=== PATIENT | female | born 1995 | race Two or more races ===

== ENCOUNTER 2024-06-10 13:48 | Emergency (ER) | payer MEDICAID, SELFPAY ==
[2024-06-10 13:49] VITALS: BMI 31.8
[2024-06-10 14:07] VITALS: BP 136/81; PULSE 100; RESP 18; TEMP 37.6; O2SAT 99
--- NOTE | 2024-06-10 14:13 | PD.EDVAGBL ---
ED OB Contraction Preg RMI/HPI General Chief complaint: Vaginal Bleeding Stated complaint: VAGINAL BLEEDING 4 WEEKS Time Seen by Provider: 06/10/24 14:12 Arrival date/time: 06/10/24 13:48 28 year old female present to emergency room with c/o of vaginal bleeding for 4 weeks. today. LOCATION: suprapubic SEVERITY: Symptoms are described as being severe with limitations on activities of daily living QUALITY: Symptoms are described as being cramping CONTEXT: The patient is unable to identify any inciting events. DURATION/TIMING: The symptoms started approximately one day ago and have been waxing/waning but always present without ever completely resolving. ASSOCIATED SYMPTOMS: The patient is unable to identify any other associated symptoms. MODIFYING FACTORS: The patient is unable to identify any alleviating or aggravating symptoms. PERTINENT ROS: denies trauma, denies domestic violence, no dysuria or hematuria, no orthostatic symptoms, no nausea or vomiting, no fevers, no anorexia, no diarrhea or constipation REVIEW OF SYSTEMS: See History of Present Illness - with the exception of those mentioned in the history of present illness, all other systems reviewed and reported as negative GENERAL: In general the patient is awake, interactive, in an emergency department gurney. HEAD/EYES/EARS/NOSE/THROAT: normo-cephalic, atraumatic, mucus membranes are moist, anicteric, palpebral conjunctiva is pink, trachea is midline. CARDIOVASCULAR: regular rate and regular rhythm, no murmurs, heart sounds are not distant, strong pulses in all four extremities that are equal and symmetric bilateral upper and lower extremities, normal capillary refill. CHEST/PULMONARY: normal chest rise and fall, good air movement, clear to auscultation bilaterally, normal inspiratory to expiratory ratios without evidence of respiratory distress. NECK: No midline/Paraspinal tenderness, no step off ROM/Strenght intact No Kernig and bruzinski sign. No trauma ABDOMEN: soft,lower abdominal tenderness, no masses appreciated BACK: normal range of motion without pain. NEUROLOGICAL: cranio-facial features are symmetric, moves all four extremities equally without obvious limitations or weakness. EXTREMITY: no tenderness to palpation over the long bones or large joints of the bilateral upper and lower extremities, no joint swelling, no joint erythema, no signs of trauma, no unilateral leg swelling and no peripheral edema. SKIN: warm, dry, well-perfused, no jaundice, no rash, no telangiectasias or petechia. PSYCH: calm, cooperative, no evidence of psychosis or agitation Related Data Home Medications ?Medication ?Instructions ?Recorded ?Confirmed prenat.vits,roverto,zve-tvpd-eodxe 1 tab PO QDAY 12/27/23 01/15/24 Previous Rx's ?Medication ?Instructions ?Recorded ibuprofen 600 mg tablet 600 mg PO Q6H PRN pain #30 tabs 01/23/24 cephalexin 500 mg capsule 500 mg PO TID 7 days #21 caps 06/10/24 Allergies Allergy/AdvReac Type Severity Reaction Status Date / Time No Known Allergies Allergy Verified 06/10/24 13:52 Course Course Course Narrative: This patient presents with vaginal bleeding in the first trimester. DDX includes ectopic, IUP, threatened/inevitable , along with completed . Patient is HDS and without a history of coagulopathy or infectious symptoms. Doubt alternate acute emergent pathology. Plan: bHCG, +/- basic labs, type and screen, TVUS, reassess Quality Measures none Orders Category Date Time Status US OB <= 14 weeks fetus Stat Exams 06/10/24 14:17 Completed US renal BI Stat Exams 06/10/24 14:18 Completed ABO/RH Type Stat Lab 06/10/24 14:46 Received Beta HCG,Quantitative Stat Lab 06/10/24 14:46 Completed CBC Stat Lab 06/10/24 14:46 Completed CMP [Comprehensive Metabolic Panel] Stat Lab 06/10/24 14:46 Completed UA [Urinalysis] Stat Lab 06/10/24 15:01 Completed Urine Culture Stat Lab 06/10/24 15:01 Received cephALEXin [Keflex] Med 06/10/24 16:12 Discontinued 500 mg PO X1 ONE Vital Signs Vital signs: Vital Signs Temperature 99.6 F 06/10/24 14:07 Pulse Rate 100 06/10/24 14:07 Respiratory Rate 18 06/10/24 14:07 Blood Pressure 136/81 H 06/10/24 14:07 Pulse Oximetry (%) 99 06/10/24 14:07 Oxygen Delivery Method Room Air 06/10/24 14:07 Vaginal Bleeding Patient data External records reviewed:: [facility] previous records Clinical information provided by:: patient Social determinants that could affect healthcare access:: none Patient has the following chronic illnesses:: none How is presenting disease/condition affected by chronic disease/condition?: no chronic disease Evaluation data The following diagnostics were reviewed and interpreted by me:: lab results and radiology exam(s) Lab and/or radiology exams considered but not ordered:: none Interpretation Summary: US: Uterus 8.2 x 4.5 x 5.9 cm No uterine mass or intrauterine gestation Endometrial stripe 0.3 cm Right ovary 2.8 x 1.7 x 2.8 cm arterial flow to millimeters follicular cyst Left ovary 2.5 x 1.3 x 2.5 cm arterial flow IMPRESSION: No uterine mass or intrauterine gestation us renal: Mild left renal parenchymal scar formation No hydronephrosis or renal calculi No bladder mass or bladder calculi Bladder prevoid volume 433 cc postvoid volume 74 cc IMPRESSION: Mild left renal parenchymal scar formation No renal calculi or hydronephrosis hc urine: + leuks + wbc + rbc possible UTi cbc/cmp no acute findings. Medications / Prescriptions Medications or Prescriptions considered but not ordered:: none Medication administrations:: Medication Administration History Discontinued Medications Cephalexin HCl (Cephalexin 250 Mg Capsule) 500 mg PO X1 ONE Stop: 06/10/24 16:13 as stated above Consultations Consultation(s) initiated? (list below): No Diagnosis Vaginal Bleeding Differential Diagnosis: threatened , dysfunctional uterine bleeding, menometrorrhagia, ectopic without intrauterine , vaginal bleeding and other ( ) Most likely diagnosis given after review of the tests above:: UTI, vaginal Admission Indicated Admission indicated?: not indicated Admission Request Was there a request for admission?: No Disposition Plan Disposition Plan: Discharge Discharge Attestation Discharge Attestation: The patient and all family members were given an opportunity to ask questions and understood the discharge instructions. Discharge instructions specifically effects, indications for sooner follow up or return to the emergency department, and the expected course of current diagnosis. Patient condition: Stable Discharge Plan Plan Patient Disposition: HOME (Self Care) Health Concerns: Return to ED or OB in 2-3 days for repeat hcg levels/US Return to ED if symptoms worsen Prescriptions/Referrals Prescriptions/Med Rec: New cephalexin 500 mg capsule 500 mg PO TID 7 Days Qty: 21 0RF No Action prenat.vits,roverto,six-diff-mmset Tablet 1 tab PO QDAY ibuprofen 600 mg tablet 600 mg PO Q6H PRN (Reason: pain) Qty: 30 0RF Referrals: Micheal Garrison MD [Primary Care Provider] - In 1 week Problem List Clinical Impression: Vaginal bleeding during , UTI (urinary tract infection) Patient/Caregiver Discharge Instructions Education Materials: Understanding Urinary Tract ..., Bleeding During Early Print Language: Divehi Stand Alone Forms: Laura Award Info., Patient Portal Info Letter
--- NOTE | 2024-06-10 14:17 | XR_ITS ---
Examination: Complete OB ultrasound, less than 14 weeks, transabdominal Date and time of exam: June 10, 2024 1522 hours INDICATIONS: Onset vaginal bleeding and pelvic cramping beginning today Technique: Obstetrical ultrasound images less than 14 weeks performed via transabdominal imaging Findings: Uterus 8.2 x 4.5 x 5.9 cm No uterine mass or intrauterine gestation Endometrial stripe 0.3 cm Right ovary 2.8 x 1.7 x 2.8 cm arterial flow to millimeters follicular cyst Left ovary 2.5 x 1.3 x 2.5 cm arterial flow IMPRESSION: No uterine mass or intrauterine gestation
--- NOTE | 2024-06-10 14:18 | XR_ITS ---
Examination: Retroperitoneal ultrasound, complete Technique: Multiple high resolution grayscale images of the retroperitoneum obtained, including kidneys and bladder. Exam date and time:June 10, 2024 1528 hours INDICATIONS: Onset left-sided flank pain today FINDINGS: Right kidney 10.1 x 5.3 x 6.2 cm cortex 1.2 cm Left kidney 9.3 x 5.3 x 4.8 cm cortex 1.3 cm Mild left renal parenchymal scar formation No hydronephrosis or renal calculi No bladder mass or bladder calculi Bladder prevoid volume 433 cc postvoid volume 74 cc IMPRESSION: Mild left renal parenchymal scar formation No renal calculi or hydronephrosis
[2024-06-10 15:12] LABS: Basophils # (Auto) 0.1 Thou/mm3 (0.0-0.2); Basophils % (Auto) 1 % (0-2.5); Eosinophils # (Auto) 0.3 Thou/mm3 (0.0-0.5); Eosinophils % (Auto) 3 % (0-10); Hematocrit 39.5 % (36.0-46.0); Hemoglobin 13.6 g/dL (12.0-16.0); Immature Granulocytes % (Auto) 0 % (0-0); Immature Granulocytes Auto 0.04 Thou/mm3 (0.00-0.00); Lymphocytes # (Auto) 2.8 Thou/mm3 (1.0-4.8); Lymphocytes % (Auto) 23 % (10-50); Mean Corpuscular HGB Conc 34.4 g/dl (31.0-37.0); Mean Corpuscular Volume 81 fL (80-100); Monocytes # (Auto) 0.6 Thou/mm3 (0.0-0.8); Monocytes % (Auto) 5 % (0-12); Neutrophils # (Auto) 8.5 Thou/mm3 (1.8-7.7); Neutrophils % (Auto) 69 % (37-80); Nucleated Red Blood Cell % 0 /100 WBC (0); Platelet Count 242 Thou/mm3 (140-440); RDW Standard Deviation 37.6 fL (36.4-46.3); Red Blood Count 4.85 Miln/mm3 (4.00-5.20); White Blood Count 12.3 Thou/mm3 (3.6-11.0)
[2024-06-10 15:12] LABS: Collection Type, Urine Voided
[2024-06-10 15:30] LABS: Bilirubin,Urine Negative (Negative); Blood,Urine 3+ (Negative); Clarity,Urine Turbid (Clear/Hazy); Color,Urine Colorless (Lt Yel-Yel); Glucose, Urine Negative (Negative); Ketones,Urine Negative (Negative); Leukocyte Esterase,Urine Positive (Negative); Nitrite,Urine Negative (Negative); Protein,Urine Trace (Neg - Trace); RBC,Urine 41 /hpf (0-3); Specific Gravity,Urine 1.011 (1.001-1.035); Squamous Epithelial Cell,Urine 11 /hpf (0-5); Urobilinogen,Urine Negative mg/dL (0.0-1.0); WBC,Urine 20 /hpf (0-5)
[2024-06-10 15:36] LABS: Alanine Aminotransferase 16 U/L (10-49); Albumin, Serum 5.1 gm/dL (3.5-5.0); Albumin/Globulin Ratio 1.5 (1.2-2.2); Alkaline Phosphatase 143 U/L (46-116); Anion Gap 12 (7-16); Aspartate Amino Transferase 21 U/L (0-34); BUN/Creatinine Ratio 22 Ratio (12-20); Beta HCG,Quantitative 6 mIU/mL (<5.0); Bilirubin,Total 0.7 mg/dL (0.3-1.2); Blood Urea Nitrogen 13 mg/dL (9-23); Calcium 9.7 mg/dL (8.3-10.6); Calcium (Corrected) 9.7 mg/dL (8.5-10.1); Carbon Dioxide 23.6 mMol/L (20.0-31.0); Chloride 103 mMol/L (98-107); Creatinine (Component) 0.6 mg/dL (0.6-1.3); Estimated Creatinine Clearance 142.5 mL/min (>60); Globulin 3.4 gm/dL (2.3-3.5); Glucose 99 mg/dL (74-106); Osmolality,Calculated 277 (275-295); Potassium 3.6 mMol/L (3.4-5.1); Sodium 139 mMol/L (136-145); Total Protein 8.5 gm/dL (5.7-8.2); eGFR > 60 See Note
[2024-06-10 16:13] VITALS: BP 118/70; PULSE 86; RESP 16; TEMP 36.9; O2SAT 97
[2024-06-10] MEDS: cephALEXin 250 MG CAPSULE 500 MG PO (16:28)
== END 2024-06-10 17:51 | disposition home or self-care (01) ==
PROVIDERS: Physician Assistant; Emergency Provider Emergency Medicine; PCP Family Medicine
DX: O20.9 Hemorrhage in early pregnancy, unspecified (principal); O23.41 Unspecified infection of urinary tract in pregnancy, first trimester; Z3A.01 Less than 8 weeks gestation of pregnancy
CPT/HCPCS: 36415; 76770; 76801; 80053; 81001; 84702; 85025; 86900; 86901; 87086; 99284; A9270

== ENCOUNTER 2025-03-18 04:53 | Observation (INO) | payer MEDICAID, SELFPAY ==
[2025-03-18] VITALS (9 sets, daily range): BP systolic 105–116; BP diastolic 66–67; PULSE 81–97; RESP 17–99; TEMP 36.8; O2SAT 98–100; BMI 33.6
== END 2025-03-18 08:15 | disposition home or self-care (01) ==
PROVIDERS: Admitting Provider Specialist; Visit Provider Specialist
DX: O47.1 False labor at or after 37 completed weeks of gestation (principal); Z3A.39 39 weeks gestation of pregnancy
CPT/HCPCS: 59025; 59899

== ENCOUNTER 2025-03-18 10:32 | Inpatient (IN) | payer MEDICAID, SELFPAY ==
[2025-03-18] VITALS (82 sets, daily range): BP systolic 86–175; BP diastolic 46–88; PULSE 71–131; RESP 15–18; TEMP 36.7–36.8; O2SAT 86–100; BMI 33.6
--- NOTE | 2025-03-18 07:56 | ESHP_ITS ---
RE: NACHO CRAWFORD : 1995 DATE OF ADMISSION: 03/18/2025 This is a 29-year-old 5 para 3-0-1-3 with due date of 03/23 with intrauterine at 39 weeks and 2 days who presents to labor and delivery complaining of contractions. She denies any leaking or bleeding. She reports normal movement. She denies any bleeding. ALLERGIES: NO KNOWN DRUG ALLERGIES. MEDICATIONS: multivitamin 1 p.o. daily. PAST MEDICAL HISTORY: Migraine headache with aura, borderline chronic hypertension, chlamydia cervicitis in 01/2022. SOCIAL HISTORY: She denies any alcohol, drug use, or smoking. FAMILY HISTORY: Mother has migraine headaches and hypertension. OB HISTORY: In 2015 a 40-week normal vaginal delivery of 9-ctezdr-83-ounce male, no complications. In 2020 a 40-week normal vaginal delivery of 8-bfnece-28-ounce female, no complication. In 2023 a 40-week normal vaginal delivery of 6-bjvhk-02-ounce male, no complication. In 05/2024 a spontaneous AB of 4 weeks gestation, no D and C. PAST SURGICAL HISTORY: Denies. REVIEW OF SYSTEMS: She denies any chest pain, palpitations, cough, fever, shortness of breath, flank pain, or lower extremity pain. PHYSICAL EXAMINATION: VITAL SIGNS: Blood pressure is 109/61, heart rate 88, respiration 18, temperature is 98.6. Weight is 189 pounds. HEENT: Oropharynx and sclerae clear. LUNGS: Clear to auscultation bilaterally. HEART: Regular rate and rhythm. ABDOMEN: Gravid, term size consistent with estimated weight is 7 pounds 5 ounces. PELVIC: See RN notes. EXTREMITIES: Nontender. SKIN: No gross rashes or lesions. NEUROLOGIC: No focal deficit. ASSESSMENT AND PLAN: Intrauterine at 39 weeks and 2 days, labor, anticipate spontaneous vaginal delivery. Informed consent was obtained. The patient made aware of the risk, complication, alternative, and benefits of operative vaginal delivery and delivery and agrees with these modes of delivery if indicated. DT: 06:10:02 TT: 07:54:00 Ref: [id number] - TID: [id number]
[2025-03-18 11:09] LABS: Basophils # (Auto) 0.1 Thou/mm3 (0.0-0.2); Basophils % (Auto) 1 % (0-2.5); Eosinophils # (Auto) 0.3 Thou/mm3 (0.0-0.5); Eosinophils % (Auto) 2 % (0-10); Hematocrit 36.9 % (36.0-46.0); Hemoglobin 12.6 g/dL (12.0-16.0); Immature Granulocytes Auto 0.15 Thou/mm3 (0.00-0.00); Lymphocytes # (Auto) 3.0 Thou/mm3 (1.0-4.8); Lymphocytes % (Auto) 19 % (10-50); Mean Corpuscular HGB Conc 34.1 g/dl (31.0-37.0); Mean Corpuscular Hemoglobin 28.0 pg (25.0-35.0); Mean Corpuscular Volume 82 fL (80-100); Monocytes # (Auto) 1.1 Thou/mm3 (0.0-0.8); Monocytes % (Auto) 7 % (0-12); Neutrophils # (Auto) 11.4 Thou/mm3 (1.8-7.7); Neutrophils % (Auto) 72 % (37-80); Nucleated Red Blood Cell # 0.00 Thou/mm3 (0.00-0.00); Nucleated Red Blood Cell % 0 /100 WBC (0); Platelet Count 183 Thou/mm3 (140-440); RDW Standard Deviation 40.5 fL (36.4-46.3); Red Blood Count 4.50 Miln/mm3 (4.00-5.20); White Blood Count 15.9 Thou/mm3 (3.6-11.0)
[2025-03-18] MEDS: RINGERS LACTATED 1000 ML 1,000 ML 100 ML IV ×2 (11:13→12:15)
[2025-03-18 12:02] LABS: Syphilis Nonreactive (Nonreactive)
[2025-03-18] MEDS: OXYTOCIN in NS 20 units 20 UNIT/1,000 ML BAG 125 UNIT IV (15:55)
[2025-03-18] MEDS: IBUPROFEN TAB 400 MG TABLET 800 MG PO (16:13)
[2025-03-18] MEDS: BENZO/LANO/ALOE (Dermoplast) 60 GM CAN 1 SPRAY TOP (16:13)
--- NOTE | 2025-03-18 16:20 | PD.LDDS ---
DS: Providers Provider Date of admission: 03/18/25 10:32 Primary care physician: Physician No Primary/Family Admitting Provider: Lauro Hernandez MD Attending Provider on Admission: Lauro Hernandez MD Attending Provider on DC: Lauro Hernandez MD Discharging Provider: Lauro Hernandez MD DS: Diagnosis Problem List Completed Was Problem List Reviewed/Reconciled?: Yes Summary/Hosp Course Peripartum Data Delivery Method: Normal Vaginal Delivery Episiotomy Description: None Time Spent with Patient Time attestation: Total time spent providing and/or coordinating discharge services: Exam Vital Signs Pulse BP Pulse Ox 99 135/49 H 87 L 03/18/25 16:02 03/18/25 16:02 03/18/25 15:51 Discharge Plan Plan Patient Disposition: HOME (Self Care) Patient condition on transfer: Stable Prescriptions/Referrals Prescriptions/Med Rec: New ibuprofen 600 mg tablet 600 mg PO Q6H PRN (Reason: pain) Qty: 30 0RF amoxicillin-pot clavulanate 875-125 mg tablet 1 tab PO Q12H Qty: 10 0RF Referrals: No Primary/Family,Physician [Primary Care Provider] Patient/Caregiver Discharge Instructions Discharge Activity: activity as tolerated Other Discharge Activity Instructions:: Follow up office 6 weeks. Education Materials: After a Vaginal , Breast Care After , : Caring for Yourself Print Language: Amharic Stand Alone Forms: Laura Award Info., Patient Portal Info Letter, Work/Release Restrictions Discharge Order Discharge Orders: Discharge (Routine); Ordered 03/19/25 Ordered By: Lauro Hernandez Planned Discharge Date 03/19/25
[2025-03-18 18:03] LABS: Basophils # (Auto) 0.1 Thou/mm3 (0.0-0.2); Basophils % (Auto) 0 % (0-2.5); Eosinophils # (Auto) 0.0 Thou/mm3 (0.0-0.5); Eosinophils % (Auto) 0 % (0-10); Hematocrit 31.9 % (36.0-46.0); Hemoglobin 10.9 g/dL (12.0-16.0); Immature Granulocytes Auto 0.18 Thou/mm3 (0.00-0.00); Lymphocytes # (Auto) 1.6 Thou/mm3 (1.0-4.8); Lymphocytes % (Auto) 7 % (10-50); Mean Corpuscular HGB Conc 34.2 g/dl (31.0-37.0); Mean Corpuscular Hemoglobin 28.1 pg (25.0-35.0); Mean Corpuscular Volume 82 fL (80-100); Monocytes # (Auto) 1.5 Thou/mm3 (0.0-0.8); Monocytes % (Auto) 6 % (0-12); Neutrophils # (Auto) 20.4 Thou/mm3 (1.8-7.7); Neutrophils % (Auto) 86 % (37-80); Nucleated Red Blood Cell # 0.00 Thou/mm3 (0.00-0.00); Nucleated Red Blood Cell % 0 /100 WBC (0); Platelet Count 144 Thou/mm3 (140-440); RDW Standard Deviation 40.2 fL (36.4-46.3); Red Blood Count 3.88 Miln/mm3 (4.00-5.20); White Blood Count 23.7 Thou/mm3 (3.6-11.0)
[2025-03-18] MEDS: HYDROcodone/APAP 5/325 TABLET 1 TAB PO (18:29)
[2025-03-18 18:34] LABS: Fibrinogen 441 mg/dL (175-375)
[2025-03-18] MEDS: AMPICILLIN/SULBAC INJ 3 GM in SODIUM CHLORIDE 0.9% (POP) 100 ML IV (21:52)
[2025-03-18 23:15] LABS: Basophils # (Auto) 0.1 Thou/mm3 (0.0-0.2); Basophils % (Auto) 1 % (0-2.5); Eosinophils # (Auto) 0.1 Thou/mm3 (0.0-0.5); Eosinophils % (Auto) 1 % (0-10); Hematocrit 32.4 % (36.0-46.0); Hemoglobin 11.0 g/dL (12.0-16.0); Immature Granulocytes Auto 0.16 Thou/mm3 (0.00-0.00); Lymphocytes # (Auto) 3.0 Thou/mm3 (1.0-4.8); Lymphocytes % (Auto) 14 % (10-50); Mean Corpuscular HGB Conc 34.0 g/dl (31.0-37.0); Mean Corpuscular Hemoglobin 28.0 pg (25.0-35.0); Mean Corpuscular Volume 82 fL (80-100); Monocytes # (Auto) 1.7 Thou/mm3 (0.0-0.8); Monocytes % (Auto) 8 % (0-12); Neutrophils # (Auto) 16.1 Thou/mm3 (1.8-7.7); Neutrophils % (Auto) 76 % (37-80); Nucleated Red Blood Cell # 0.00 Thou/mm3 (0.00-0.00); Nucleated Red Blood Cell % 0 /100 WBC (0); Platelet Count 164 Thou/mm3 (140-440); RDW Standard Deviation 40.3 fL (36.4-46.3); Red Blood Count 3.93 Miln/mm3 (4.00-5.20); White Blood Count 21.1 Thou/mm3 (3.6-11.0)
[2025-03-19] MEDS: AMPICILLIN/SULBAC INJ 3 GM in SODIUM CHLORIDE 0.9% (POP) 100 ML IV ×3 (03:05→14:48)
[2025-03-19 03:15] VITALS: BP 112/68; PULSE 70; RESP 18; TEMP 36.8; O2SAT 98
[2025-03-19] MEDS: IBUPROFEN TAB 400 MG TABLET 800 MG PO (03:17)
[2025-03-19 06:13] LABS: Basophils # (Auto) 0.1 Thou/mm3 (0.0-0.2); Basophils % (Auto) 1 % (0-2.5); Eosinophils # (Auto) 0.4 Thou/mm3 (0.0-0.5); Eosinophils % (Auto) 2 % (0-10); Hematocrit 31.4 % (36.0-46.0); Hemoglobin 10.5 g/dL (12.0-16.0); Immature Granulocytes Auto 0.16 Thou/mm3 (0.00-0.00); Lymphocytes # (Auto) 3.3 Thou/mm3 (1.0-4.8); Lymphocytes % (Auto) 20 % (10-50); Mean Corpuscular HGB Conc 33.4 g/dl (31.0-37.0); Mean Corpuscular Hemoglobin 28.5 pg (25.0-35.0); Mean Corpuscular Volume 85 fL (80-100); Monocytes # (Auto) 1.2 Thou/mm3 (0.0-0.8); Monocytes % (Auto) 7 % (0-12); Neutrophils # (Auto) 11.1 Thou/mm3 (1.8-7.7); Neutrophils % (Auto) 69 % (37-80); Nucleated Red Blood Cell # 0.00 Thou/mm3 (0.00-0.00); Nucleated Red Blood Cell % 0 /100 WBC (0); Platelet Count 171 Thou/mm3 (140-440); RDW Standard Deviation 42.6 fL (36.4-46.3); Red Blood Count 3.69 Miln/mm3 (4.00-5.20); White Blood Count 16.1 Thou/mm3 (3.6-11.0)
--- NOTE | 2025-03-19 07:23 | ESPR_ITS ---
RE: NACHO CRAWFORD : 1995 DATE OF SERVICE: 03/19/2025 SUBJECTIVE: day #1. Patient denies any problem or complaints. She is voiding, she is ambulating, she is tolerating diet, she is passing flatus. She denies any excessive vaginal bleeding. She denies any dizziness or lightheadedness. She denies any chest pain, palpitations, shortness of breath, or lower extremity pain. OBJECTIVE: Vital Signs: Blood pressure 112/68, heart rate 70, respiration 18. Temperature is 98.2. Pulse ox is 98% on room air. Lungs: Clear to auscultation bilaterally. Heart: Regular rate and rhythm. Abdomen: Fundus is firm, nontender. Extremities: Nontender. LABORATORY DATA: Hemoglobin pre-delivery is 12.6, post-delivery is 11.0. ASSESSMENT: day # 1 status post spontaneous vaginal delivery, presumptive endometritis. PLAN: Continue IV antibiotics. Plan discharge home on oral antibiotics. I discussed with the patient the nature of her condition, the recommended treatment plan. All questions answered. In the meantime, we will continue care with support. DT: 06:59:34 TT: 07:22:00 Ref: [id number] - TID: [id number]
[2025-03-19 07:28] VITALS: BP 96/61; PULSE 79; RESP 18; TEMP 36.4; O2SAT 98
[2025-03-19 11:35] VITALS: BP 99/71; PULSE 79; RESP 19; TEMP 36.4; O2SAT 98
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
[2025-03-19 15:37] VITALS: BP 97/60; PULSE 73; RESP 17; TEMP 36.6; O2SAT 99
--- NOTE | 2025-03-19 19:10 | PD.LDDELS ---
Data (Manuel) Data Hx Section: No : 5 Term: 3 : 0 Livin Abortions: Spontaneous & Theraputic: 1 Delivery Data (Manuel) Labor Data Initiation of labor: Spontaneous Induction/Augmentation Agent: None ROM date: 03/18/25 ROM time: 10:00 Amniotic membrane rupture type: Spontaneous Amniotic fluid description: Light Meconium Delivery Data EDC: 03/24/25 EDC calculated by:: LMP/early US confirmation Onset of labor date: 03/18/25 Onset of labor time: 10:00 Complete dilation date: 03/18/25 Complete dilation time: 15:15 [place] delivery date: 03/18/25 [place] delivery time: 15:52 Gestational age (weeks): 39 Gestational age (days): 2 Placenta delivery date: 03/18/25 Placenta delivery time: 16:04 Stage 1 total time: Labor - Stage 1 Duration 5 hours and 15 minutes Delivered by: GEILING DO Delivery nurse: GUANAKITO RON RN [facility] thumb region nurse: CHRISSY BATISTA RN [employer] at delivery: Yes Support person(s) at delivery: FOB Delivery Method Delivery method: Normal Vaginal Delivery Presentation: Vertex position: OA Anesthesia Type Anesthesia Type: Epidural Placenta Placenta delivery description: Spontaneous Cord blood sent to lab: Yes cord blood collection: Cord Blood Type Episiotomy Episiotomy description: None EBL Estimated blood loss (ml): 100 Umbilical Cord cord description: 3 Vessels Complications Complications: None [place] Data (Manuel) [place] Data order: 1 's gender: Female 1 minute: 8 5 minutes: 9
== END 2025-03-19 19:10 | disposition home or self-care (01) | DRG 560 ==
LOC: S4NX 03-19 06:08 → S4SX 03-19 06:08
PROVIDERS: Admitting Provider Specialist; Visit Provider Specialist
DX: O10.92 Unspecified pre-existing hypertension complicating childbirth (principal); Z37.0 Single live birth; Z3A.39 39 weeks gestation of pregnancy; O77.0 Labor and delivery complicated by meconium in amniotic fluid; O86.12 Endometritis following delivery
CPT/HCPCS: 36415; 59025; 59409; 85025; 85384; 86780; 86850; 86900; 86901; 94762; J0295; J2590; J2795; J3010; J7120; A9270